=== PATIENT | male | born 2000 | race African-American/Black ===

== ENCOUNTER 2021-09-09 05:03 | Emergency (ER) | payer MEDICAID ==
[~2021-09-09] VITALS: Ht 172.7 cm; Wt 69.0 kg
[2021-09-09 05:55] LABS: CLARITY URINE CLEAR (CLEAR); COLOR URINE YELLOW (YELLOW); KETONES URINE TRACE (NEGATIVE); LEUKOCYTE ESTERASE URINE NEGATIVE (NEGATIVE); NITRITE URINE NEGATIVE (NEGATIVE); OCCULT BLOOD URINE NEGATIVE (NEGATIVE); PH URINE 5.5 (4.5-8.0); PROTEIN URINE NEGATIVE (NEGATIVE); SPECIFIC GRAVITY URINE 1.021 (1.005-1.030); UROBILINOGEN URINE 0.2 E.U./dL (0.2-1.0)
[2021-09-09] MEDS ORDERED: FLUC150T5 PO (06:13)
[2021-09-09] MEDS ORDERED: CLOT15CR27 TP (06:13)
[2021-09-09 06:15] VITALS: BP 122/74
== END 2021-09-09 06:02 | disposition home or self-care (01) ==
LOC: ER 05:03
DX: B35.6 Tinea cruris (principal); R35.0 Frequency of micturition
CPT/HCPCS: 81003; 82962; 87491; 87591; 99283

== ENCOUNTER 2022-01-27 21:31 | Emergency (ER) | payer MEDICAID ==
[~2022-01-27] VITALS: Ht 172.7 cm; Wt 68.0 kg
[~2022-01-27 21:31] MED LIST: CLOT15CR27 TP; FLUC150T46 PO
[2022-01-27 22:20] VITALS: BP 118/82
[2022-01-27] MEDS ORDERED: IBUPROFEN 600MG TABLET PO STA (22:20)
[2022-01-28] MEDS ORDERED: IBUP-2029 PO (01:09)
== END 2022-01-28 01:42 | disposition home or self-care (01) ==
LOC: ER 21:31
DX: S00.83XA Contusion of other part of head, initial encounter (principal); S60.221A Contusion of right hand, initial encounter; Y08.89XA Assault by other specified means, initial encounter; Y93.89 Activity, other specified; Y92.9 Unspecified place or not applicable
CPT/HCPCS: 70486; 73130; 99284

== ENCOUNTER 2022-02-23 01:31 | Emergency (ER) | payer MEDICAID ==
[~2022-02-23] VITALS: Ht 172.7 cm; Wt 69.6 kg
[~2022-02-23 01:31] MED LIST changes: +IBUP-2029 PO
[2022-02-23 01:47] VITALS: BP 108/62
== END 2022-02-23 04:03 | disposition left against medical advice (07) ==
LOC: ER 01:57
DX: Z53.21 Procedure and treatment not carried out due to patient leaving prior to being seen by health care provider (principal)